=== PATIENT | male | born 1990 | race American Indian/Alaskan Native ===

== ENCOUNTER 2019-01-21 23:39 | Emergency (ER) | payer OTHER ==
[2019-01-21 23:49] VITALS: BP 122/80
[2019-01-22] MEDS ORDERED: TETRACAINE 0.5% OU ONE (01:23)
[2019-01-22] MEDS ORDERED: FUL-GLO OP ONE (01:24)
[2019-01-22] MEDS ORDERED: BSS OU ONE (01:24)
--- NOTE | 2019-01-22 01:28 | Emergency Department Report ---
ED General Adult HPI - General Chief complaint: Headache Stated complaint: EYE/HEAD PAIN Time Seen by Provider: 01/22/19 01:15 Source: patient Mode of arrival: Ambulatory Limitations: No Limitations - History of Present Illness Initial comments: 28-year-old -[place] male presents to the emergency room for I and headaches pain. Patient reports he is suffering from left eye pain for a year. Patient reports that the pain is intermittent but it has gotten worse in the last few days. Patient reports that his eyes were sensitivity to light. Thiago newman is taking nothing for pain patient has never been seen for this issue. Patient does admit to visual blurriness. Patient's past medical history of asthma currently takes no medications on a daily basis and has no known drug allergies. Onset/Timin -: days(s) Location: head, eyes (left) Severity scale (0 -10): 9 Quality: aching, sharp Consistency: intermittent Improves with: none Associated Symptoms: headaches Treatments Prior to Arrival: none - Related Data Previous Rx's Medication Instructions Recorded Last Taken Type Acetaminophen/Codeine [Tylenol 1 tab PO Q4HR PRN #12 tablet 01/22/19 Unknown Rx /Codeine # 3 tab] Erythromycin [Erythromycin Ophth 1 applic OS QID #1 tube 01/22/19 Unknown Rx Oint] Ibuprofen [Motrin 600 MG tab] 600 mg PO Q8H PRN #30 tablet 01/22/19 Unknown Rx Allergies Allergy/AdvReac Type Severity Reaction Status Date / Time No Known Allergies Allergy Unverified 01/22/19 01:19 ED Review of Systems ROS: Stated complaint: EYE/HEAD PAIN Other details as noted in HPI Eyes: vision change (left eye) ENT: denies: ear pain, throat pain Respiratory: denies: cough, shortness of breath, wheezing Cardiovascular: denies: chest pain, palpitations Endocrine: no symptoms reported Gastrointestinal: denies: abdominal pain, nausea, diarrhea Neurological: headache ED Past Medical Hx - Past Medical History Previous Medical History?: Yes Hx Asthma: Yes - Surgical History Past Surgical History?: Yes Additional Surgical History: Hernia - Social History Smoking Status: Current Every Day Smoker Substance Use Type: Marijuana - Medications Home Medications: Home Medications Medication Instructions Recorded Confirmed Last Taken Type Acetaminophen/Codeine [Tylenol 1 tab PO Q4HR PRN #12 tablet 01/22/19 Unknown Rx /Codeine # 3 tab] Erythromycin [Erythromycin Ophth 1 applic OS QID #1 tube 01/22/19 Unknown Rx Oint] Ibuprofen [Motrin 600 MG tab] 600 mg PO Q8H PRN #30 tablet 01/22/19 Unknown Rx ED Physical Exam - General Limitations: No Limitations ED Course Vital Signs 01/21/19 23:44 Temperature 98.1 F Pulse Rate 58 L Respiratory 18 Rate Blood Pressure 122/80 O2 Sat by Pulse 100 Oximetry Critical care attestation.: If time is entered above; I have spent that time in minutes in the direct care of this critically ill patient, excluding procedure time. ED Disposition Clinical Impression: Cornea abrasion Qualifiers: Encounter type: initial encounter Laterality: left Qualified Code(s): S05.02XA - Injury of conjunctiva and corneal abrasion without foreign body, left eye, initial encounter Disposition: TO HOME OR SELFCARE Is pt being admited?: No Does the pt Need Aspirin: No Condition: Stable Instructions: Corneal Abrasion (ED) Additional Instructions: Please use medications and take oral medication as prescribed. It's important for you to follow-up with an instructional supervisor in the next 24-48 hours I have listed the inflammation below for your convenience. Prescriptions: Erythromycin [Erythromycin Ophth Oint] 1 applic OS QID #1 tube Ibuprofen [Motrin 600 MG tab] 600 mg PO Q8H PRN #30 tablet PRN Reason: Pain , Severe (7-10) Acetaminophen/Codeine [Tylenol /Codeine # 3 tab] 1 tab PO Q4HR PRN #12 tablet PRN Reason: Pain Referrals: [facility], [facility] [Provider Group] - 3-5 Days [facility] [Provider Group] - 3-5 Days Forms: Work/School Release Form(ED)
[2019-01-22] MEDS ORDERED: IBUPROFEN PO ONE (02:02)
== END 2019-01-22 03:12 | disposition home or self-care (01) ==
LOC: ED 23:39
DX: S05.02XA Injury of conjunctiva and corneal abrasion without foreign body, left eye, initial encounter (principal); J45.909 Unspecified asthma, uncomplicated; F17.200 Nicotine dependence, unspecified, uncomplicated; F12.10 Cannabis abuse, uncomplicated; X58.XXXA Exposure to other specified factors, initial encounter; Y93.89 Activity, other specified; Y92.89 Other specified places as the place of occurrence of the external cause; Y99.8 Other external cause status
CPT/HCPCS: 99282